=== PATIENT | female | born 1945 | race Caucasian/White ===

== ENCOUNTER → 2018-05-26 | Outpatient (CLI) | payer MEDICARE ==
--- NOTE | 2018-06-01 10:27 | MM ---
Reason for exam: screening (asymptomatic). Last mammogram was performed 1 year ago. History: Patient is postmenopausal. Excisional biopsy of the right breast. Physical Findings: A clinical breast exam by your physician is recommended on an annual basis and results should be correlated with mammographic findings. MG Screening Mammo w CAD Bilateral CC and MLO view(s) were taken. Prior study comparison: May 27, 2017, mammogram, performed at [facility]. May 20, 2016, mammogram, performed at [facility]. May 13, 2015, bilateral MG screening mammo w CAD. February 18, 2010, mammogram, performed at [facility]. There are scattered fibroglandular densities. No suspicious abnormality. No significant changes when compared with prior studies. ASSESSMENT: Negative, BI-RAD 1 RECOMMENDATION: Routine screening mammogram of both breasts in 1 year.
== END | disposition home or self-care (01) ==
LOC: RADMAMWWP 08:48
PROVIDERS: ATTEND Obstetrics & Gynecology
DX: Z12.31 Encounter for screening mammogram for malignant neoplasm of breast (principal)
CPT/HCPCS: 77067

== ENCOUNTER → 2018-06-16 | Outpatient (CLI) | payer MEDICARE ==
[2018-06-16 19:11] LABS: Albumin 4.3 g/dL (3.80-4.90); Albumin/Globulin Ratio 2.05 (1.60-3.17); Anion Gap 8.6 mmol/L (4.00-12.00); Calcium 9.6 mg/dL (8.7-10.3); Carbon Dioxide 29.4 mmol/L (21.6-31.8); Globulin 2.1 g/dL (1.6-3.3); Potassium 4.1 mmol/L (3.5-5.5); Total Bilirubin 0.7 mg/dL (0.2-1.2); Total Protein 6.4 g/dL (6.2-8.2)
== END ==
LOC: LABWHC1 13:12
PROVIDERS: ATTEND Family Medicine
DX: I10 Essential (primary) hypertension (principal); Z11.59 Encounter for screening for other viral diseases
CPT/HCPCS: 36415; 80053; 86803

== ENCOUNTER → 2019-02-13 | Outpatient (CLI) | payer MEDICARE ==
--- NOTE | 2019-02-13 11:41 | ECHOS ---
STRESS ECHOCARDIOGRAM INDICATIONS: Shortness of breath. MEDICATIONS: None. BASELINE HEART RATE: 69 BASELINE BLOOD PRESSURE: 134/74 MAXIMUM HEART RATE: 144 MAXIMUM BLOOD PRESSURE: 208/51 85% MPHR: 124 100% MPHR: 146 METS: 3.2 MAXIMUM STAGE REACHED: 1 TOTAL EXERCISE TIME: 1:57 CLINICAL INFORMATION: Baseline EKG shows sinus rhythm with poor R-wave progression. Patient exercised on Fransico protocol for 1 minute and 57 seconds achieving 3 METS. 99% of predicted maximal heart rate. At this level of activity, patient became fatigued and tired due to which the stress test was stopped and there was [address]-segment depression noted in the inferolateral leads. Baseline echo shows normal left ventricular size, wall motion and systolic function. Postexercise, there is hypokinesis involving the apex suggestive of stress-induced ischemia in LAD distribution. CONCLUSION: 1. Extremely poor exercise tolerance. 2. Abnormal stress test by EKG criteria. 3. Abnormal stress echo. MMJOEL / IJN: [id number] /
== END | disposition home or self-care (01) ==
LOC: RADNMMAIN 09:02
PROVIDERS: ATTEND Family Medicine
DX: R94.39 Abnormal result of other cardiovascular function study (principal); R06.00 Dyspnea, unspecified
CPT/HCPCS: 93351

== ENCOUNTER → 2019-02-15 | Outpatient (CLI) | payer MEDICARE ==
[2019-02-15 08:53] LABS: HCT 45.7 % (34.0-46.0); HGB 15.9 gm/dL (11.4-16.0); MCH 34.4 pg (25.0-35.0); MCHC 34.9 g/dL (31.0-37.0); MCV 98.8 fL (80.0-100.0); Mean Platelet Volume 5.5; Platelet Count 269 k/uL (150-450); RBC 4.62 m/uL (3.80-5.40); WBC 6.1 k/uL (3.8-10.6)
[2019-02-15 16:43] LABS: African American GFR (CKD) 84.2 (60.0-200.0); Anion Gap 8.1 mmol/L (4.00-12.00); Carbon Dioxide 26.9 mmol/L (21.6-31.8); Chol/HDL Ratio 2.86; LDL Cholesterol,Calculated 98.2 mg/dL (0.0-131.0); Non-African American GFR(CKD) 72.6 (60.0-200.0); Potassium 4.4 mmol/L (3.5-5.5); VLDL Calculation 20.8 mg/dL (5.00-40.00)
== END | disposition home or self-care (01) ==
LOC: LABWHC1 07:42
PROVIDERS: ATTEND Internal Medicine Cardiovascular Disease
DX: E78.2 Mixed hyperlipidemia (principal); R06.02 Shortness of breath
CPT/HCPCS: 36415; 80051; 80061; 82565; 84450; 84460; 84520; 85027

== ENCOUNTER → 2019-02-22 | Day surgery (SDC) | payer MEDICARE ==
[2019-02-20 15:57] VITALS: BMI 28.3
[~2019-02-22] MED LIST: ALPRAZolam 0.25 MG TAB PO PRN; ALPRAZolam 0.5 MG TAB PO PRN; ASPIRIN 325 MG TAB PO ONE; ATORVASTATIN 80 MG TAB PO ONE; ATROPINE SULFATE 0.1 MG/ML 10ML SYRINGE ONE; ENALAPRILAT 1.25 MG/ML 1 ML VIAL IV ONE; ENALAPRILAT 1.25 MG/ML 1 ML VIAL ONE; IOPAMIDOL-370 125ML BTL INJ ONE; LIDOCAINE 1% INJ 10MG/ML (20 ML MDV) ONE; LIDOCAINE 1% INJ 10MG/ML (20 ML MDV) SQ ONE; NITROGLYCERIN SL TABS 0.4 MG TAB SUBLINGUAL PRN; RX INFO: IV CONTRAST WAS GIVEN 1 EACH MISC MISCELLANE PRN; SODIUM CHLORIDE 0.9% 1,000 ML IV SCH; SODIUM CHLORIDE 0.9% 1,000 ML in EMPTY BAG 1 BAG IV ONE; amLODIPine 5 MG TAB ONE; amLODIPine 5 MG TAB PO ONE
[2019-02-22 06:51] VITALS: TEMP 98.1
[2019-02-22 07:56] VITALS: RESP 14
--- NOTE | 2019-02-22 08:29 | CC ---
CARDIAC CATHETERIZATION REPORT INDICATION: Exertional shortness of breath with abnormal stress echo. PROCEDURE NOTE: After obtaining informed consent, left heart catheterization and coronary angiogram were performed via the right femoral artery using standard Sharon catheters. The patient tolerated the procedure well without any obvious immediate complications. A femoral angiogram was performed and Angio-Seal was deployed for hemostasis. FINDINGS: 1. HEMODYNAMICS: Left ventricular end-diastolic pressure is 24 mm. There is no significant gradient across the aortic valve. 2. LEFT VENTRICULOGRAM: Left ventriculogram is not performed. 3. ANGIOGRAPHIC DATA: Left Main Coronary Artery: Left main coronary artery is a normal-sized vessel and is free of stenosis. Divides into left anterior descending coronary artery and circumflex coronary artery. LAD: LAD seems totally occluded in its proximal part with delayed filling of the distal LAD. Circumflex coronary artery is a nondominant vessel and is free of significant stenosis. Right coronary artery is a large dominant vessel that is free of significant stenosis and there are extensive collaterals going to the distal LAD. 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 PLAN: I reviewed angiographic data with the patient and talked to her about treatment options including optimal medical therapy, referral to a tertiary care center for attempt at catheter based revascularization of the chronic total occlusion. Refer her to a cardiothoracic surgeon for a single-vessel CABG. We will get an opinion from the cardiothoracic surgeon today. Patient's blood pressure is elevated and she is someone who does not like to take any medications and we will consider starting her on medications. MMODL / IJN: [id number] /
--- NOTE | 2019-02-22 08:32 | LTR ---
February 22, 2019 Re: Dorcas Stewart Dear Siddhartha: I performed cardiac catheterization on Dorcas Stewart. A detailed catheterization note is enclosed for your records. In brief, the cardiac catheterization reveals total occlusion of the proximal LAD. Thank you for allowing me to participate in the care of this pleasant lady. I will keep you informed of her progress and treatment options. Sincerely, MD MAGUI Kraus / THOMAS: [id number] /
--- NOTE | 2019-02-22 11:10 | P.GSCN ---
History of Present Illness Consult date: 02/22/19 Reason for Consult: Coronary artery disease Requesting physician: Chet Lagos History of present illness: This is a 73-year-old active female patient who follows on an outpatient basis with Dr. Siddhartha Lee. She has a previous medical history of hypertension which she relates to the stress of losing her son to cancer a year ago, as well as family history of premature coronary artery disease. She denies any other significant medical history. Apparently this summer she noticed she was having some increased shortness of breath with activity such as mowing the lawn, she attributed this to just getting older. Her primary care physician recommended a stress test which was abnormal and she was referred to [facility] for further evaluation. She denied any chest pain, lower extremity edema, orthop latricia, palpitations, syncopal episodes, stroke-like symptoms, or any other aggravating or alleviating symptoms. She was recommended to undergo heart catheterization which was completed this morning by Dr. Lagos. The left heart catheterization demonstrated chronic total occlusion of the proximal LAD with collateral circulation from the right side. Due to these findings consultation was placed to Dr. Mathias for surgical recommendations. Review of Systems Review of systems was completed and was negative except as noted in the HPI Past Medical History Past Medical History: Deep Vein Thrombosis (DVT), GERD/Reflux Additional Past Medical History / Comment(s): HX OF SEIZURES WITH FEVER A CHILD, OCCASIONAL VERTIGO, DVT AFTER ANKLE FX, used to take BP med till Nov., SOB w/exertion History of Any Multi-Drug Resistant Organisms: MRSA Year Discovered:: FEBRUARY 2012 MDRO Source:: RT BREAST Past Surgical History: Appendectomy, Breast Surgery Additional Past Surgical History / Comment(s): LEFT OOPHERECTOMY, BX RT BREAST, colonoscopies Past Anesthesia/Blood Transfusion Reactions: Family History of Problems w/ Anesthesia Additional Past Anesthesia/Blood Transfusion Reaction / Comm: MOTHER ALWAYS CONFUSED FOR A WHILE AFTER SURGERY Past Psychological History: No Psychological Hx Reported Smoking Status: Never smoker Past Alcohol Use History: None Reported Past Drug Use History: None Reported - Past Family History Mother Family Medical History: Cancer, Chest Pain / Angina, CVA/TIA Father Family Medical History: CVA/TIA Additional Family Medical History / Comment(s): tuberculosis in 1940s Sister(s) Family Medical History: No Reported History Son(s) Family Medical History: Cancer Additional Family Medical History / Comment(s): Son of cancer a year ago Medications and Allergies Home Medications Medication Instructions Recorded Confirmed Type Aspirin 325 mg PO DAILY 10/29/13 02/22/19 History Calcium Carbonate/Vitamin D3 1 tab PO DAILY 07/17/15 02/22/19 History [Calcium 600 + Vit D Tablet] Magnesium 200 mg PO DAILY 07/17/15 02/22/19 History Vitamin B Complex 1 cap PO DAILY 07/17/15 02/22/19 History Vitamin E 100 unit PO DAILY 07/17/15 02/22/19 History Zinc 50 mg PO DAILY 07/17/15 02/22/19 History Potassium 99 mg PO DAILY 02/20/19 02/22/19 History Allergies Allergy/AdvReac Type Severity Reaction Status Date / Time sertraline HCl [From Zoloft] Allergy Severe Nausea & Verified 02/22/19 06:32 Vomiting & Diarrhea Latex, Natural Rubber Allergy Unknown Verified 02/22/19 06:32 hydromorphone HCl AdvReac Vomiting Verified 02/22/19 06:32 [From Dilaudid] Surgical - Exam Vital Signs Temp Pulse Resp BP Pulse Ox 98.1 F 72 18 159/77 98 02/22/19 06:45 02/22/19 06:45 02/22/19 06:45 02/22/19 06:45 02/22/19 06:45 - General well developed, well nourished, no distress, no pain - Eyes PERRL, normal ocular movement - ENT no hearing loss - Neck no masses, no bruits, trachea midline - Respiratory Lungs sounds clear bilaterally. Respirations even, nonlabored. Currently on room air with oxygen saturation 100%. No chest wall deformities. No clubbing or cyanosis present. - Cardiovascular S1, S2 present. Regular rate and rhythm, sinus rhythm on telemetry. Palpable peripheral pulses bilaterally. No edema present. No calf pain or tenderness noted. - Abdomen Abdomen: soft, non tender, bowel sounds - Genitourinary Deferred - Rectum Deferred - Integumentary no rash, no growths - Neurologic normal coordination, normal sensation - Musculoskeletal normal posture - Psychiatric oriented to time, oriented to person, oriented to place, speech is normal, memory intact Results - Imaging Additional studies: Heart catheterization films were reviewed with Dr. Mathias. Assessment and Plan Assessment: 1. Coronary artery disease with chronic occlusion of the proximal LAD 2. History of hypertension 3. Family history of premature coronary artery disease Plan: The patient was seen and examined at the bedside in the extended stay unit. Chart/diagnostics were reviewed. The usual perioperative course for open-heart surgery was discussed in detail with the patient, risks and benefits were reviewed, all questions were answered. The patient does state that she does not want to have open heart surgery, she states she has no family, and she does feel that her health is not hampering her ability to function on a daily basis. When asked if her decision would be different if she was told she could tomorrow, the patient stated she does not want surgery, and she is ready to meet her maker when that time comes no matter when that is. Our contact information was given to the patient should she change her mind, and Dr. Mathias will meet with the patient to give our recommendation as well as answer any questions she may have. Thank you Dr. Lagos for this consult, please call us with any questions. Time with Patient: Greater than 30
[2019-02-22 12:37] VITALS: BP 134/62; PULSE 63
== END ==
LOC: CATHCVL 05:45
PROVIDERS: ATTEND Internal Medicine Cardiovascular Disease
DX: I25.82 Chronic total occlusion of coronary artery (principal); I25.10 Atherosclerotic heart disease of native coronary artery without angina pectoris; I10 Essential (primary) hypertension; M25.50 Pain in unspecified joint; K21.9 Gastro-esophageal reflux disease without esophagitis; Z91.040 Latex allergy status; Z79.899 Other long term (current) drug therapy; Z79.82 Long term (current) use of aspirin; Z88.0 Allergy status to penicillin; Z88.8 Allergy status to other drugs, medicaments and biological substances; Z88.5 Allergy status to narcotic agent; Z86.718 Personal history of other venous thrombosis and embolism; Z86.69 Personal history of other diseases of the nervous system and sense organs; Z87.81 Personal history of (healed) traumatic fracture; Z86.14 Personal history of Methicillin resistant Staphylococcus aureus infection; Z90.49 Acquired absence of other specified parts of digestive tract; Z98.890 Other specified postprocedural states; Z90.721 Acquired absence of ovaries, unilateral; Z82.49 Family history of ischemic heart disease and other diseases of the circulatory system; Z80.9 Family history of malignant neoplasm, unspecified; Z84.89 Family history of other specified conditions; Z83.1 Family history of other infectious and parasitic diseases
CPT/HCPCS: 93458; C1769 ×2; C1760; C1894; J2001; Q9967

== ENCOUNTER → 2019-12-12 | Outpatient (CLI) | payer MEDICARE ==
[2019-12-12 10:16] LABS: Basophils % (A) 1 %; Eosinophils # (A) 0.2 k/uL (0-0.7); Eosinophils % (A) 2 %; HCT 50.5 % (34.0-46.0); HGB 16.6 gm/dL (11.4-16.0); Lymphocytes # (A) 2.2 k/uL (1.0-4.8); Lymphocytes % (A) 29 %; MCH 32.1 pg (25.0-35.0); MCHC 32.8 g/dL (31.0-37.0); MCV 98.1 fL (80.0-100.0); Mean Platelet Volume 6.3; Monocytes # (A) 0.5 k/uL (0-1.0); Monocytes % (A) 6 %; Neutrophils # (A) 4.5 k/uL (1.3-7.7); Neutrophils % (A) 60 %; Platelet Count 275 k/uL (150-450); RBC 5.15 m/uL (3.80-5.40); RDW 12.2 % (11.5-15.5); WBC 7.6 k/uL (3.8-10.6)
[2019-12-12 22:22] LABS: African American GFR (CKD) 83.6 (60.0-200.0); Albumin 4.7 g/dL (3.80-4.90); Albumin/Globulin Ratio 1.88 (1.60-3.17); Anion Gap 12.1 mmol/L (4.00-12.00); BUN/Creat Ratio 16.25 Ratio (12.00-20.00); Calcium 9.8 mg/dL (8.7-10.3); Carbon Dioxide 26.9 mmol/L (21.6-31.8); Chol/HDL Ratio 3.25; Globulin 2.5 g/dL (1.6-3.3); Non-African American GFR(CKD) 72.1 (60.0-200.0); Potassium 4.5 mmol/L (3.5-5.5); Total Bilirubin 0.9 mg/dL (0.2-1.2); Total Protein 7.2 g/dL (6.2-8.2)
== END | disposition home or self-care (01) ==
LOC: LABWHC1 09:43
PROVIDERS: ATTEND Family Medicine
DX: Z00.01 Encounter for general adult medical examination with abnormal findings (principal); I25.10 Atherosclerotic heart disease of native coronary artery without angina pectoris
CPT/HCPCS: 36415; 80053; 80061; 85025

== ENCOUNTER → 2020-04-28 | Outpatient (CLI) | payer MEDICARE ==
--- NOTE | 2020-04-28 15:40 | CT ---
EXAMINATION TYPE: CT abdomen pelvis wo con DATE OF EXAM: 04/28/2020 COMPARISON: 07/24/2015 INDICATION: Diverticulitis w/o perforation. Pt c/o abdominal discomfort. DLP: 458.20 mGycm, Automated exposure control for dose reduction was used. CONTRAST: 0 mL of Isovue 300. Study performed with Oral Contrast TECHNIQUE: Axial images were obtained from above the diaphragm to the pubic rami in the axial plane a t 5 mm thick sections. Reconstructed images are reviewed on the computer in the coronal plane. FINDINGS: Limited CT sections are obtained the lung bases. The lung bases are clear. Coronary artery calcific ations present. CT ABDOMEN: Liver: Normal Spleen: Normal. Small splenule is anterior to the spleen Pancreas: Atrophic Adrenal glands: The adrenal glands are normal. Gallbladder: Poorly visualized Kidneys: No masses are evident. No hydronephrosis is present. No cysts are present. No renal stone s are evident. Aorta: Vascular calcification is within the aorta. Inferior vena cava: Normal. CT PELVIS: Loops of bowel within the abdomen and pelvis are normal. Diverticulosis without acute diverticulitis is present. There are loops of bowel which are incompletely distended or lack oral contrast limiti ng their evaluation. Appendix: Not visualized. No dilated tubular structure inflammatory changes evident. Urinary bladder: Normal as visualized Genitourinary structures: Uterus appears normal. Adnexal regions are clear. Osseous structures: No suspicious lytic or sclerotic lesions. Facet changes are within the lumbar spi ne. IMPRESSIONS: 1. Diverticulosis without acute diverticulitis.
== END | disposition home or self-care (01) ==
LOC: RADCTMAIN 12:55
PROVIDERS: ATTEND Nurse Practitioner Adult Health
DX: K57.90 Diverticulosis of intestine, part unspecified, without perforation or abscess without bleeding (principal)
CPT/HCPCS: 74176

== ENCOUNTER → 2020-05-21 | Outpatient (CLI) | payer MEDICARE ==
--- NOTE | 2020-05-21 15:54 | BD ---
EXAMINATION TYPE: Axial Bone Density DATE OF EXAM: 05/21/2020 COMPARISON: 05/13/2015 CLINICAL HISTORY: 74-year-old female postmenopausal screening, disorder of bone. Height: 59 IN Weight: 151 LBS FRAX RISK QUESTIONS: Secondary Osteoporosis: 3. Menopause before 45: AGE 34 RISK FACTORS HISTORY OF: Family History of Osteoporosis: SISTER Active: YES Postmenopausal woman: AGE 34 MEDICATIONS: Additional Medications: PRESERVISION, CALCIUM, VIT D, ASPIRIN EXAM MEASUREMENTS: Bone mineral densitometry was performed using the [employer]. Bone mineral density as measured about the Lumbar spine is: ----- L1-L4(G/cm2): 1.022 T Score Values are as follows: ----- L2: -1.5 ----- L3: -1.5 ----- L4: -1.6 ----- L1-L4: -1.3 Bone mineral density has: Increased 2.0% since study of: 05/13/2015 Bone mineral density about the R hip (g/cm2): 0.687 Bone mineral density about the L hip (g/cm2): 0.691 T Score values are as follows: -----R Neck: -2.5 -----L Neck: -2.5 -----R Total: -2.3 -----L Total: -2.4 Bone mineral density has: Decreased -6.1% since study of: 05/13/2015 IMPRESSION: Osteoporosis (T Score less than -2.5). There is increased fracture risk and therapy is usually indicated based on age. Re-Screen 1-2 years. NOTE: T-SCORE=SD OF THE YOUNG ADULT MEAN.
--- NOTE | 2020-05-23 11:45 | MM ---
Reason for exam: screening (asymptomatic). Last mammogram was performed 2 years ago. History: Patient is postmenopausal. Excisional biopsy of the right breast. Physical Findings: A clinical breast exam by your physician is recommended on an annual basis and results should be correlated with mammographic findings. MG 3D Screening Mammo W/Cad Bilateral CC and MLO view(s) were taken. Prior study comparison: May 26, 2018, bilateral MG screening mammo w CAD. May 27, 2017, mammogram, performed at [facility]. There are scattered fibroglandular densities. No significant changes when compared with prior studies. ASSESSMENT: Negative, BI-RAD 1 RECOMMENDATION: Routine screening mammogram of both breasts in 1 year.
== END | disposition home or self-care (01) ==
LOC: RADMAMWWP 14:36
PROVIDERS: ATTEND Obstetrics & Gynecology
DX: Z12.31 Encounter for screening mammogram for malignant neoplasm of breast (principal); M81.0 Age-related osteoporosis without current pathological fracture
CPT/HCPCS: 77063; 77067; 77080

== ENCOUNTER 2021-01-02 09:45 | Day surgery (SDC) | payer MEDICARE ==
[2020-12-31 11:25] VITALS: BMI 28.3
[2021-01-02 10:14] VITALS: RESP 18; TEMP 97.7
[2021-01-02] MEDS: LACTATED RINGERS 1,000 ML IV SCH ×2 (10:20→10:48)
[2021-01-02] MEDS ORDERED: PROPOFOL 10 MG/ML 20 ML VIAL IV ONE (10:51)
--- NOTE | 2021-01-02 11:13 | P.PCN ---
Date of Procedure: 01/02/21 Procedure(s) Performed: BRIEF HISTORY: Patient is a 75-year-old pleasant female scheduled for an elective colonoscopy as a part of screening for colorectal neoplasia. PROCEDURE PERFORMED: Colonoscopy with biopsy.. PREOPERATIVE DIAGNOSIS: Screening for colon cancer. IV sedation per Anesthesia. PROCEDURE: After informed consent was obtained, the patient, was brought into the endoscopy unit. IV sedation was administered by Anesthesia under continuous monitoring. Digital rectal examination was normal. Initially the Olympus CF-160 flexible video colonoscope was then inserted in the rectum, gradually advanced into the cecum without any difficulty. Careful examination was performed as the scope was gradually being withdrawn. Ileocecal valve and the appendiceal orifice were visualized and appeared normal. Prep was fair.. Mucosa of the cecum, normal. The ascending colon there was a 3 mm and 5 mm sessile polyps removed by cold biopsy. Rest of the ascending colon, transverse colon, descending colon, sigmoid colon, and rectum appeared normal. At her sigmoid diverticulosis seen. Retroflexion was performed in the rectum and no lesions were seen. The patient tolerated the procedure well. IMPRESSION: 3 mm and 5 mm ascending colon polyp status post cold biopsy Scattered sigmoid diverticulosis RECOMMENDATIONS: Findings of this examination were discussed with the patient scattered as well as her family. She was advised to follow with the biopsy results. If the biopsy was adenoma she can have a repeat coloscopy in 5 years.
[2021-01-02 11:35] VITALS: BP 125/58; PULSE 57
== END 2021-01-02 11:50 | disposition home or self-care (01) ==
LOC: ORWHC2ENDO 09:45
PROVIDERS: ATTEND Internal Medicine Gastroenterology
DX: Z12.11 Encounter for screening for malignant neoplasm of colon (principal); K57.90 Diverticulosis of intestine, part unspecified, without perforation or abscess without bleeding; D12.2 Benign neoplasm of ascending colon; Z79.82 Long term (current) use of aspirin; Z86.718 Personal history of other venous thrombosis and embolism; Z88.5 Allergy status to narcotic agent; Z91.040 Latex allergy status; M19.90 Unspecified osteoarthritis, unspecified site
CPT/HCPCS: 88305; 45380; J2704

== ENCOUNTER → 2021-05-25 | Outpatient (CLI) | payer MEDICARE ==
--- NOTE | 2021-05-26 11:12 | MM ---
Reason for exam: screening (asymptomatic). Last mammogram was performed 1 year ago. History: Patient is postmenopausal. Excisional biopsy of the right breast. Physical Findings: A clinical breast exam by your physician is recommended on an annual basis and results should be correlated with mammographic findings. MG 3D Screening Mammo W/Cad Bilateral CC and MLO view(s) were taken. Prior study comparison: May 21, 2020, bilateral MG 3d screening mammo w/cad. May 26, 2018, bilateral MG screening mammo w CAD. There are scattered fibroglandular densities. There is no discrete abnormality. ASSESSMENT: Negative, BI-RAD 1 RECOMMENDATION: Routine screening mammogram of both breasts in 1 year.
== END | disposition home or self-care (01) ==
LOC: RADMAMWWP 09:44
PROVIDERS: ATTEND Obstetrics & Gynecology
DX: Z12.31 Encounter for screening mammogram for malignant neoplasm of breast (principal); Z78.0 Asymptomatic menopausal state
CPT/HCPCS: 77063; 77067

== ENCOUNTER → 2021-08-13 | Outpatient (CLI) | payer MEDICARE ==
[2021-08-13 14:29] LABS: HCT 46.7 % (37.2-46.3); HGB 15.5 g/dL (12.0-15.0); MCH 32.8 pg (27.0-32.0); MCHC 33.2 g/dL (32.0-37.0); MCV 98.9 fL (80.0-97.0); Mean Platelet Volume 9.6 fL (9.5-12.2); NRBC Per 100 WBC 0 /100 WBCS (0.0-0.0); Platelet Count 237 X 10*3/uL (140-440); RBC 4.72 X 10*6/uL (4.10-5.20); WBC 7.87 X 10*3/uL (4.50-10.00)
[2021-08-13 14:59] LABS: ALT 31 U/L (8-44); AST 25 U/L (13-35); Blood Urea Nitrogen 16.4 mg/dL (9.0-27.0); Calcium 9.7 mg/dL (8.7-10.3); Carbon Dioxide 23.9 mmol/L (20.0-27.5); Chloride 107 mmol/L (96-109); Chol/HDL Ratio 3.11 Ratio; Glucose 95 mg/dL (70-110); Non-African American GFR(CKD) 71.6 (60.0-200.0); Potassium 4.4 mmol/L (3.5-5.5); Sodium 142 mmol/L (135-145)
== END | disposition home or self-care (01) ==
LOC: LABWHC1 08:10
PROVIDERS: ATTEND Nurse Practitioner Family
DX: E78.2 Mixed hyperlipidemia (principal)
CPT/HCPCS: 36415; 80048; 80061; 84443; 84450; 84460; 85027

== ENCOUNTER → 2022-04-14 | Outpatient (CLI) | payer MEDICARE ==
--- NOTE | 2022-04-14 10:01 | MM ---
Reason for Exam: Clinical finding. Last screening mammogram was performed 11 month(s) ago. Patient History: Menarche at age 9. First Full-Term at age 25. Left ovary removed at age 22. Postmenopausal. Excisional Biopsy on the Right side. Risk Values: Ami 5 year model risk: 2.5%. NCI Lifetime model risk: 4.8%. Tissue Density: There are scattered fibroglandular densities. Findings: Analyzed By CAD. No suspicious calcifications seen within either breast. No distinct nodular density at the site of clinical concern however ultrasound is advised. Overall Assessment: Incomplete: need additional imaging evaluation, BI-RAD 0 Management: Diagnostic Breast Ultrasound of the right breast. A clinical breast exam by your physician is recommended on an annual basis and results should be correlated with mammographic findings. This exam should not preclude additional follow-up of suspicious palpable abnormalities. Results were given to the patient verbally at the time of exam. Electronically signed and approved by: William Hernandez M.D. Radiologis
--- NOTE | 2022-04-14 10:05 | USB ---
Reason for Exam: Clinical finding. Patient History: Menarche at age 9. First Full-Term at age 25. Left ovary removed at age 22. Postmenopausal. Excisional Biopsy on the Right side. Risk Values: Ami 5 year model risk: 2.5%. NCI Lifetime model risk: 4.8%. Prior Study Comparison: 05/26/2018 Bilateral Screening Mammogram, [facility]. 05/21/2020 Bilateral Screening Mammogram, [facility]. 05/25/2021 Bilateral Screening Mammogram, [facility]. Findings: The retroareolar of the right breast was scanned. No solid or cystic masses are identified.. Overall Assessment: Negative, BI-RAD 1 Management: Screening Mammogram of both breasts in 1 year. A clinical breast exam by your physician is recommended on an annual basis and results should be correlated with mammographic findings. This exam should not preclude additional follow-up of suspicious palpable abnormalities. Results were given to the patient verbally at the time of exam. Electronically signed and approved by: William Hernandez M.D. Radiologis
== END | disposition home or self-care (01) ==
LOC: RADMAMWWP 08:51
PROVIDERS: ATTEND Obstetrics & Gynecology
DX: N63.10 Unspecified lump in the right breast, unspecified quadrant (principal); N64.4 Mastodynia; Z78.0 Asymptomatic menopausal state; Z98.890 Other specified postprocedural states
CPT/HCPCS: 77066; 76642; G0279; 77062

== ENCOUNTER → 2023-05-02 | Outpatient (CLI) | payer MEDICARE ==
--- NOTE | 2023-05-03 22:14 | MM ---
Reason for Exam: Screening (asymptomatic). Last screening mammogram was performed 12 month(s) ago. Patient History: Menarche at age 9. First Full-Term at age 25. Left ovary removed at age 22. Postmenopausal. Excisional Biopsy on the Right side. Risk Values: Ami 5 year model risk: 2.5%. NCI Lifetime model risk: 4.4%. Prior Study Comparison: 05/21/2020 Bilateral Screening Mammogram, [facility]. 05/25/2021 Bilateral Screening Mammogram, [facility]. 04/14/2022 Bilateral MG 3D diag mammo w/cad ELIANE, [facility]. Tissue Density: There are scattered fibroglandular densities. Findings: Analyzed By CAD. There is no suspicious group of microcalcifications or new suspicious mass in either breast. Overall Assessment: Negative, BI-RAD 1 Management: Screening Mammogram of both breasts in 1 year. . Patient should continue monthly self-breast exams. A clinical breast exam by your physician is recommended on an annual basis. This exam should not preclude additional follow-up of suspicious palpable abnormalities. Note on Ami scores and lifetime risk: 1. A Mai score greater than 3% is considered moderate risk. If this is the case, consider specialist referral to assess eligibility for a risk reducing agent. 2. If overall lifetime risk for the development of breast cancer is 20% or higher, the patient may qualify for future screening with alternating mammogram and breast MRI. Electronically signed and approved by: Conner Trujillo M.D. Radiologist
== END | disposition home or self-care (01) ==
LOC: RADMAMWWP 10:36
PROVIDERS: ATTEND Obstetrics & Gynecology
DX: Z12.31 Encounter for screening mammogram for malignant neoplasm of breast (principal); Z78.0 Asymptomatic menopausal state
CPT/HCPCS: 77063; 77067